=== PATIENT | female | born 1990 | race Caucasian/White ===

== ENCOUNTER 2020-07-21 11:49 | Emergency (ER) | payer SELFPAY ==
[~2020-07-21] VITALS: Ht 172.7 cm; Wt 86.4 kg
[~2020-07-21 11:49] MED LIST: ONDA4TAB10 SL; RANI-376 PO; SULF1TAB24 PO
--- NOTE | 2020-07-21 12:12 | PHYS DOC ---
Past Medical History Past Medical History: Depression Past Surgical History: Other Additional Past Surgical Histo: bilateral myringotomy w/ tubes & removal Smoking Status: Current Every Day Smoker Alcohol Use: Occasionally Drug Use: Marijuana General Adult EDM: Chief Complaint: LOWER EXT PAIN HPI: HPI: Patient is a 29 year old female who presents with states on 1216 she was seen at [facility] and diagnosed with a fracture of her left lower leg or her foot. She patient states she is unsure. She was placed in a posterior splint. She states that she was given hydrocodone of which she is out of. She states her pain is uncontrolled. She states that she just got a job that she really cared about and no she is not losing her job because she cannot work due to the pain in the injury. She states that she has crutches that she uses. She states that she cannot get a hold of the people that she is supposed to call to get follow-up care. She rates her pain a 10 out of 10 and states that the bottom of her foot is throbbing. Patient denies numbness or tingling, coolness of the extremity. She states she has not been trying to walk on the extremity. She has a history of depression and anxiety. Patient is very tearful and anxious. Review of Systems: Review of Systems: Constitutional: Denies fever or chills. [] Eyes: Denies change in visual acuity. [] HENT: Denies nasal congestion or sore throat. [] Respiratory: Denies cough or shortness of breath. [] Cardiovascular: Denies chest pain or + left foot and ankle edema. [] GI: Denies abdominal pain, nausea, vomiting, bloody stools or diarrhea. [] : Denies dysuria. [] Musculoskeletal: Denies back pain. +Left lower leg, ankle and foot joint pain. [] Integument: Denies rash. +Bruising. [] Neurologic: Denies headache, focal weakness or sensory changes. [] Endocrine: Denies polyuria or polydipsia. [] Lymphatic: Denies swollen glands. [] Psychiatric: Denies depression or anxiety. [] Heart Score: Risk Factors: Risk Factors: DM, Current or recent (<one month) smoker, HTN, HLP, family history of CAD, obesity. Risk Scores: Score 0 - 3: 2.5% MACE over next 6 weeks - Discharge Home Score 4 - 6: 20.3% MACE over next 6 weeks - Admit for Clinical Observation Score 7 - 10: 72.7% MACE over next 6 weeks - Early Invasive Strategies Allergies: Allergies: Allergies Coded Allergies Type Severity Reaction Last Updated Verified No Known Drug Allergies 08/07/13 No Physical Exam: PE: Constitutional: Well developed, well nourished, no acute distress, non-toxic appearance. [] HENT: Normocephalic, atraumatic, bilateral external ears normal, oropharynx moist, no oral exudates, nose normal. [] Eyes: PERRLA, EOMI, conjunctiva normal, no discharge. [] Neck: Normal range of motion, no tenderness, supple, no stridor. [] Cardiovascular:Heart rate regular rhythm, no murmur [] Lungs & Thorax: Bilateral breath sounds clear to auscultation [] Abdomen: Bowel sounds normal, soft, no tenderness, no masses, no pulsatile masses. [] Skin: Warm, dry, no erythema, no rash. Left lateral foot and ankle bruising [] Back: No tenderness, no CVA tenderness. [] Extremities: Left dorsal and posterior foot tenderness, no cyanosis, no clubbing, left ankle ROM not intact due to swelling and pain, left ankle and foot 2+ edema. [] Neurologic: Alert and oriented X 3, normal motor function, normal sensory function, no focal deficits noted. [] Psychologic: Affect normal, judgement normal, mood normal. [] EKG: EKG: [] Radiology/Procedures: Radiology/Procedures: [] Impression: [facility] [address] [place] [address] IMAGING REPORT Signed PATIENT: KWAN MAHAJAN ACCOUNT: [id number] : 1990 LOCATION: ER AGE: 29 SEX: F EXAM STATUS: REG ER ORD. PHYSICIAN: BRENDON JACOBS APRN REASON: pain, swelling, states fx 07/16 PROCEDURE: TIBIA FIBULA LEFT XR LT TIBIA + FIBULA, XR FOOT_LEFT 3 VIEWS, XR EXAM OF ANKLE_LEFT 3V 07/21/2020 12:07 PM INDICATION: Pain, swelling. Fracture 07/16/2020 COMPARISON: None available. TECHNIQUE: 2 views of left tibia and fibula, 3 views of the left foot and 3 views of the left ankle are provided. FINDINGS/ IMPRESSION: A minimally displaced fracture involving the medial malleolus with extension to the tibiotalar joint. No disruption of the ankle mortise. Lateral malleolus appears intact. Tarsals, metatarsals and phalanges appear intact. Joint spaces are maintained. Bone mineralization is within normal limits. Regional there is diffuse ankle soft tissue swelling. There is no soft tissue gas or osseous erosion. No radiopaque foreign body. Electronically signed by: Andrew Tolentino MD (07/21/2020 12:33 PM) [facility] DICTATED and SIGNED BY: ANDREW TOLENTINO MD DATE: 07/21/20 [id number] 0 Course & Med Decision Making: Course & Med Decision Making Pertinent Labs and Imaging studies reviewed. (See chart for details) See HPI. There is ankle and foot swelling at 2+. Skin pink warm and dry. Cap refill less than 2 seconds. Pedal pulses strong and present. Patient has bruising to the lateral foot and ankle. She does not have range of motion in the ankle but she can wiggle her toes. She states she is out of hydrocodone. When K tracks and the patient on 1216 she was given (12) 5/325 Dixon. She states she is almost out of ibuprofen also. I unwrapped the extremity and took splinting off patient is sitting in the chair with the leg elevated. She states that it feels slightly better. No calf tenderness. No deformity to the extremity or joints. Patient is given hydrocodone in the ED. I spoke to Dr. Qureshi who is covering orthopedics this week. I notified them of the patient and x-ray findings. He states that she does not need to be seen emergently and that she can be seen next week in the clinic. He states he is going to take a look at the x-rays. We will resplint the patient with a posterior and stirrup splint. I will give the patient for more Dixon and ibuprofen. Patient is complaining that we are not doing enough for her and she has asked for nurse 3 times and nobody is come back to help her. Patient is very tearful and anxious. Patient's boyfriend is also in the room is very anxious. Boyfriend and the patient are both asking for 10 mg or higher Dixon's to help with her pain. She states that every day she wakes up and she is in pain. I asked the patient if she would like to be admitted to the hospital for pain control and she stated " I do not know", " I am just venting". I told the patient that I called our orthopedics and let them know about her case and they will get her in as soon as possible to be seen. I told the patient that I was going to give her more Dixon and her response was " what like 5 of them?". It is explained to the patient that she is on the Xanax and there is alcohol in her urine and mixed with narcotics that could lower her respiratory rate and she could stop breathing potentially so it could potentially be a dangerous combination. I have offered her a morphine shot prior to leaving off. She stated she would like that. The patient and boyfriend are both having narcotic seeking behaviors. I have spoken to Dr Grande about this patient and care plan. She is in agreement with the care plan and everything that has been done for the patient. Splint assessment: Neurovascularly intact post splint replacement with good fit. Patient's extremity symptoms have stabilized well they have been evaluated in the department and are appropriate for outpatient follow-up. No evidence of compartment syndrome, neurologic injury, vascular injury, open joint, open fracture, tendon laceration, or foreign body. [] Dragon Disclaimer: Dragon Disclaimer: This electronic medical record was generated, in whole or in part, using a voice recognition dictation system. Departure Departure Impression: Primary Impression: Medial malleolar fracture Qualified Codes: S82.52XA - Displaced fracture of medial malleolus of left tibia, initial encounter for closed fracture Disposition: 01 DC HOME SELF CARE/HOMELESS Condition: STABLE Referrals: NO PCP (PCP) [facility] MD Patient Instructions: Ankle Fracture, Ankle Fracture with Rehab-Sports[facility] Additional Instructions: Follow-up with orthopedics as soon as possible. The numbers on this paperwork. Stay off of the extremity is much as possible. Keep the extremity elevated to reduce swelling. Apply ice. Take medication as prescribed. Scripts Ibuprofen (IBUPROFEN) 600 Mg Tablet 600 MG PO PRN Q6HRS PRN for INFLAMMATION, #30 TAB Prov: BRENDON JACOBS FOOD AND BEVERAGE ASSISTANT 07/21/20 Hydrocodone/Apap 5-325 (NORCO 5-325 TABLET) 1 Each Tablet 1 TAB PO PRN Q6HRS PRN for PAIN, #12 TAB 0 Refills Prov: BRENDON JACOBS FOOD AND BEVERAGE ASSISTANT 07/21/20 BRENDON JACOBS APRN Jul 21, 2020 12:12
[2020-07-21] MEDS ORDERED: HYDROcodone/APAP 5/325MG 1 TAB TABLET PO ONE (12:15)
--- NOTE | 2020-07-21 12:35 | RAD ---
XR LT TIBIA + FIBULA, XR FOOT_LEFT 3 VIEWS, XR EXAM OF ANKLE_LEFT 3V 07/21/2020 12:07 PM INDICATION: Pain, swelling. Fracture 07/16/2020 COMPARISON: None available. TECHNIQUE: 2 views of left tibia and fibula, 3 views of the left foot and 3 views of the left ankle are provided. FINDINGS/ IMPRESSION: A minimally displaced fracture involving the medial malleolus with extension to the tibiotalar joint. No disruption of the ankle mortise. Lateral malleolus appears intact. Tarsals, metatarsals and phala nges appear intact. Joint spaces are maintained. Bone mineralization is within normal limits. Regiona l there is diffuse ankle soft tissue swelling. There is no soft tissue gas or osseous erosion. No rad iopaque foreign body. Electronically signed by: Terese Boykin MD (07/21/2020 12:33 PM) [facility]ER[facility]
[2020-07-21 12:36] VITALS: BP 140/96
[2020-07-21] MEDS ORDERED: HYDR-3164 PO ×2 (12:36→13:06)
[2020-07-21] MEDS ORDERED: IBUP-1007 PO ×2 (12:36→13:06)
[2020-07-21 13:33] LABS: BARBITURATES NEG (NEG); BENZODIAZEPINES POS (NEG); CANNABINOIDS POS (NEG); COCAINE NEG (NEG); METHADONE NEG (NEG); OPIATES POS (NEG); PHENCYCLIDINE NEG (NEG)
[2020-07-21 13:35] LABS: AMPHETAMINE/METHAMPHETAMINE NEG (NEG)
[2020-07-21] MEDS ORDERED: MORPHINE SULFATE 2 MG/ML VIAL. IM ONE (14:00)
== END 2020-07-21 14:52 | disposition home or self-care (01) ==
LOC: ER 11:49
DX: S82.52XA Displaced fracture of medial malleolus of left tibia, initial encounter for closed fracture (principal); F17.200 Nicotine dependence, unspecified, uncomplicated; X58.XXXA Exposure to other specified factors, initial encounter; Y93.89 Activity, other specified; Y92.89 Other specified places as the place of occurrence of the external cause; Y99.8 Other external cause status
CPT/HCPCS: 29515; 73590; 73610; 73630; 80307; 81025; 96372; 99284; J2270

== ENCOUNTER 2021-03-14 05:35 | Emergency (ER) | payer SELFPAY ==
[~2021-03-14] VITALS: Ht 172.7 cm; Wt 82.7 kg
[~2021-03-14 05:35] MED LIST changes: +HYDR-3164 PO; +IBUP-1007 PO
[2021-03-14 05:45] VITALS: BP 105/66
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
[2021-03-14] MEDS ORDERED: KETOROLAC 15 MG/ML VIAL. IVP ONE (07:00)
== END 2021-03-14 08:05 | disposition home or self-care (01) ==
LOC: ER 05:35
DX: S00.81XA Abrasion of other part of head, initial encounter (principal); M54.9 Dorsalgia, unspecified; M54.2 Cervicalgia; R07.89 Other chest pain; R47.81 Slurred speech; F17.200 Nicotine dependence, unspecified, uncomplicated; Z88.6 Allergy status to analgesic agent; X58.XXXA Exposure to other specified factors, initial encounter; Y93.89 Activity, other specified; Y92.89 Other specified places as the place of occurrence of the external cause; Y99.8 Other external cause status
CPT/HCPCS: 81025; 96374; 99283; J1885